=== PATIENT | male | born 1990 | race Caucasian/White ===

== ENCOUNTER 2025-02-07 11:47 | Emergency (ER) | payer BC, SELFPAY ==
[2025-02-07 11:52] VITALS: BP 140/89; PULSE 106; RESP 28; TEMP 36.9; O2SAT 96; BMI 46.8
--- NOTE | 2025-02-07 12:18 | ED_ITS ---
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 He has no chest pain but gets congested has a productive cough of clear to yellowish sputum. He has had no rigors or chills. He has not been told he has emphysema but he has smoked long-term. He has responded antibiotics the past when he gets sick like this. reports that he does cough? hack? daily even when he is not sick. He denies diabetes, denies hypertension. Related Data Previous Rx's ?Medication ?Instructions ?Recorded albuterol sulfate 90 mcg/actuation 2 puff inhalation Q 4-6H PRN 06/29/24 aerosol inhaler shortness of breath or wheez ing #6.7 grams doxycycline hyclate 100 mg capsule 100 mg PO BID #14 c aps 02/07/25 prednisone 20 mg tablet 20 mg PO BID 5 days #10 tabs 02/07/25 Allergies Allergy/AdvReac Type Severity Reaction Status Date / Time Penicillins Allergy Intermediate Hives Verified 02/07/25 12:02 opiates AdvReac Intermediate GI upset Uncoded 02/07/25 12:02 Review of Systems Status of ROS: Reports: 6 or more systems reviewed and unremarkable except as noted in History and below Exam Narrative: Exam Narrative: Objective: Vital signs show blood pressure borderline pulse 106 and regular respiratory 28 retested about 20 temp is 98.5? O2 sat 96% on room air Patient has a frequent cough Talks in even and unlabored sentences HEENT unremarkable neck supple at nodes chest shows diminished air exchange bilaterally no obvious rales or wheezing or pneumonia Const: Vital Signs, click to edit/add: Vital Signs - 24 hr 02/07/25 11:52 Temperature 98.5 F Pulse Rate [Pulse Oximeter] 106 H Respiratory Rate 28 H Blood Pressure [Le ft Upper Arm] 140/89 H Pulse Oximetry 96 Oxygen Delivery Me thod Room Air Course Vital Signs Vital signs: Initial Vital Signs Temperature 98.5 F 02/07/25 11:52 Temperature Source Oral 02/07/25 11:52 Pulse Rate 106 H 02/07/25 11:52 Respiratory Rate 28 H 02/07/25 11:52 Blood Pressure 140/89 H 02/07/25 11:52 Blood Pressure Mean 106 H 02/07/25 11:52 Blood Pressure Position Sitting 02/07/25 11:52 Pulse Oximetry 96 02/07/25 11:52 Oxygen Delivery Method Room Air 02/07/25 11:52 Vital Signs Temperature 98.5 F 02/07/25 11:52 Pulse Rate 106 H 02/07/25 11:52 Respiratory Rate 28 H 02/07/25 11:52 Blood Pressure 140/89 H 02/07/25 11:52 Pulse Oximetry 96 02/07/25 11:52 Oxygen Delivery Method Room Air 02/07/25 11:52 Temperature 98.5 F 02/07/25 11:52 Pulse Rate 106 H 02/07/25 11:52 Respiratory Rate 28 H 02/07/25 11:52 Blood Pressure 140/89 H 02/07/25 11:52 Pulse Oximetry 96 02/07/25 11:52 Oxygen Delivery Method Room Air 02/07/25 11:52 Medical Decision Making MDM Narrative Medical decision making narrative: [age] year white male smoker with a productive cough, likely asthmatic bronchitis. Certainly bronchitis with mild bronchospasm. I think it be reasonable to continue his inhaler 2 puffs q.i.d. as needed he can use it more often if if needed. Will give him prednisone 20 mg b.i.d. x5 days, given doxycycline 100 mg b.i.d. times 7 days. Recommend he make an appointment to discuss smoking cessation, follow-up is pulmonary infection with primary care. He can do this at [facility] I gave him those recommendations. He and his agree to do so. He could also check his blood pressure again and discussed his BMI. Return as needed. Again recommend stopping smoking. Discharge Plan Discharge Clinical Impression: Acute bronchitis, Tobacco use Patient Disposition: Home w/ Parent or Adult Condition: Stable Additional Instructions: Recommend appointment with doctors in [place] or [facility]. Smoking cessation recommended. Will give you and steroid medication to help ear cough and an antibiotic. Continue your inhaler. Recheck with a physician within the next 5-7 days. Return to ED sooner problems or concerns. Activity Level: Light activity Discharge Diet: Regular Prescriptions: New doxycycline hyclate 100 mg capsule 100 mg PO BID Qty: 14 0RF prednisone 20 mg tablet 20 mg PO BID 5 Days Qty: 10 0RF No Action albuterol sulfate 90 mcg/actuation HFA aerosol inhaler 2 puff inhalation Q4-6H PRN (Reason: shortness of breath or wheezing) Qty: 6.7 0RF Follow Up/Referrals: Provider,Not a Local [Primary Care Provider, Family Practice] Stand Alone Forms: [employer] Info Instructions
== END 2025-02-07 12:33 | disposition home or self-care (01) ==
LOC: ED 12:24
PROVIDERS: Emergency Provider Family Medicine
DX: J20.9 Acute bronchitis, unspecified (principal); F17.210 Nicotine dependence, cigarettes, uncomplicated
CPT/HCPCS: 99283